=== PATIENT | female | born 1990 | race Caucasian/White ===

== ENCOUNTER → 2021-01-21 | Outpatient (CLI) | payer OTHER ==
[~2021-01-21] MED LIST: IBUP800 PO; Motion Sickness25 M1 PO; Pseudoephedrine30 MG PO; Zofran Odt4 MG SL
== END | disposition home or self-care (01) ==
LOC: LAB SHORT 17:38 → LAB 17:38
DX: N39.0 Urinary tract infection, site not specified (principal)
CPT/HCPCS: 87086